=== PATIENT | male | born 1990 | race Caucasian/White ===

== ENCOUNTER 2021-01-18 11:50 | Outpatient (CLI) | payer OTHER, SELFPAY ==
--- NOTE | ~2021-01-18 | XR_ITS ---
EXAMINATION: XR wrist LT min 3V DATE: 01/18/2021 12:11 INDICATION: Left wrist pain. TECHNIQUE: 4 views of left wrist were obtained. COMPARISON: None. FINDINGS: Bone alignment is normal. No fracture. Joint spaces are well maintained. IMPRESSION: 1. Normal left wrist. Reviewed, dictated and finalized at location A. IMPRESSION: 1. Normal left wrist.
[2021-01-18 19:48] LABS: Basophils Absolute Auto 0.1 K/mm3 (0.0-0.1); Eosinophils Absolute Auto 0.8 K/mm3 (0-0.3); Eosinophils Percent Auto 9.8 % (0-4.4); Hematocrit 50.1 % (42.0-52.0); Hemoglobin 16.8 g/dL (14.0-18.0); Immature Granulocyte Absolute 0.02 K/mm3 (0.00-0.031); Immature Granulocyte Percent A 0.3 % (0-0.5); Lymphocytes Absolute Auto 2.62 K/mm3 (0.9-3.2); Lymphocytes Percent Auto 32.8 % (18.3-44.2); Mean Corpuscular HGB Conc 33.5 g/dl (32-36); Mean Corpuscular Hemoglobin 31.9 pg (26-34); Mean Corpuscular Volume 95.1 fl (80-100); Mean Platelet Volume 11.5 fl (7.4-10.4); Monocytes Absolute Auto 0.7 K/mm3 (0.1-0.6); Monocytes Percent Auto 8.6 % (2.6-8.5); Neutrophils Absolute Auto 3.8 K/mm3 (1.3-6.7); Neutrophils Percent Auto 47.5 % (45.5-73.1); Platelet Count Result 238 k/mm3 (150-375); Red Blood Count 5.27 M/mm3 (4.6-6.20); Red Cell Distribution Width 12.8 % (11.5-14.5)
[2021-01-18 19:54] LABS: Alanine Aminotransferase 20 U/L (4-50); Albumin Level 4.3 g/dL (3.5-5.1); Alkaline Phosphatase 83 U/L (38-126); Anion Gap 9 mmol/L (8-16); Aspartate Amino Transferase 26 U/L (17-59); Bilirubin,Total 0.8 mg/dL (0.2-1.3); Blood Urea Nitrogen 7 mg/dL (9-20); Calcium 9.4 mg/dL (8.4-10.2); Carbon Dioxide 27 mmol/L (22-30); Chloride 104 mmol/L (98-107); Cholesterol 152 mg/dL (0-200); Estimated Glomerular Filt Rate > 60; Glucose 93 mg/dL (65-110); HDL Direct 49 mg/dL; Potassium 4.4 mmol/L (3.4-5.0); Sodium 140 mmol/L (137-145); Triglycerides 94 mg/dL (<150)
[2021-01-18 20:09] LABS: LDL Cholesterol Direct 83 mg/dL
== END 2021-01-18 11:51 | disposition home or self-care (01) ==
PROVIDERS: PCP Family Medicine; Visit Provider Family Medicine
DX: H91.90 Unspecified hearing loss, unspecified ear (principal); M25.539 Pain in unspecified wrist
CPT/HCPCS: 36415; 73110; 80053; 80061; 85025

== ENCOUNTER 2021-04-27 15:40 | Emergency (ER) | payer OTHER, SELFPAY ==
[2021-04-27 15:50] VITALS: BP 121/73; PULSE 71; RESP 18; TEMP 36.7; O2SAT 98
--- NOTE | 2021-04-27 15:58 | ED.URI ---
HPI - URI/Sore Throat General Chief Complaint: Upper Respiratory Infection Stated Complaint: Cough,Fever Source: patient and RN notes reviewed Limitations: no limitations History of Present Illness HPI Narrative: The unvaccinated patient, a ex-smoker/occasional drinker, presents with cough. Patient states he has a 1 to 2-day worsening of at least a 2-week history of nonproductive cough. This initially began with sore throat which improved, followed by fever to 100.3 in the last couple days. No sputum changes, earache, wheezing-but had multiple inhalers as a teenager. No loss of taste/smell, CP, rash, S OB, vomiting/diarrhea bleeding-but he did have posttussive emesis occasionally. Symptoms are mild, worse at night; discussed possible causes [infectious (viral, bacterial), allergic,etc.] and will treat broadly. Related Data Allergies Allergy/AdvReac Type Severity Reaction Status Date / Time cefaclor [From [facility]] Allergy Intermediate Nausea and Verified 04/27/21 15:59 Vomiting Review of Systems Review of Systems: General/Constitutional: No weight loss,fever Eyes: N0: Redness,discharge Ears/Nose/Throat: No: Epistaxis,ear discharge Respiratory: Denies: Hemoptysis Gastrointestinal: No Vomiting, Bleeding-rectal Skin: No Lumps, eruption Neurologic: No Focal Weakness,Sz Hematologic: Denies: Petechiae/Purpura Psychiatric: No: Suicida ideationl All Other Systems: Reviewed and Negative [facility], LAT[facility] Past Medical History Medical History (Updated 04/27/21 @ 16:17 by Colt Cannon MD) Ganglion cyst of foot Tonsil and adenoid disease, chronic Family History Family History Father Lung cancer Diabetes mellitus Depression Mother Depression Sibling Depression Grandparent Diabetes mellitus Heart disease Social History Social History (Updated 01/18/21 @ 10:08 by Deja Glez [facility]) Smoking status: Former smoker Tobacco type: e-cigarettes/vaping Second hand tobacco smoke exposure: No Smoking end date: 06/18/20 Alcohol intake: current Alcohol use details: 9 beer per month Substance use: never Gender identity (if verbalized by the patient): Male Sexual Orientation (if Verbalized by the Patient): Straight or Heterosexual Spiritual care concerns: No Agree to blood products: Yes Comments At time of signature, agree with nursing past medical, surgical, social and family history. There is no relevant family history pertinent to the presenting complaint Exam Narrative: General Appearance: Well appearing, Well nourished EYE: PERRLA, Conjunctiva clear Ears: Auditory canal normal, TM normal Nose: Rhinorrhea, Mucousal erythema Mouth/Throat: MM moist, Uvula midline, Pharyngeal erythema Neck: Supple, No adenopathy Respiratory: No respiratory distress, Breath sounds equal, Clear to auscultation Cardiovascular: RRR, No JVD Musculoskeletal: Non tender, Normal strength Skin: Warm, Dry Neurological: A&O x3, CN II-XII intact Psychiatric: Normal mood, Normal affect Course Vital Signs Vital signs: Vital Signs Temperature 98.1 F 04/27/21 15:50 Pulse Rate 71 04/27/21 15:50 Respiratory Rate 18 04/27/21 15:50 Blood Pressure 121/73 04/27/21 15:50 Pulse Oximetry 98 04/27/21 15:50 Temperature 98.1 F 04/27/21 15:50 Pulse Rate 71 04/27/21 15:50 Respiratory Rate 18 04/27/21 15:50 Blood Pressure 121/73 04/27/21 15:50 Pulse Oximetry 98 04/27/21 15:50 Discharge Plan Discharge Clinical Impression: Chronic cough Patient Disposition: Home, Self-Care Condition: Stable Instructions: Antibiotic Form, Chronic Cough (ED) Prescriptions: New azithromycin 250 mg tablet See Rx Instructions .ROUTE .COMPLEX Qty: 6 RF: 0 prednisone 20 mg tablet 60 mg PO DAILY Qty: 9 RF: 0 benzonatate 100 mg capsule 100 mg PO TID PRN (Reason: cough) Qty: 20 RF: 2 albuterol
[2021-04-28 17:50] LABS: SARS-CoV-2 RNA PCR Negative
== END 2021-04-27 16:18 | disposition home or self-care (01) ==
PROVIDERS: Emergency Provider Emergency Medicine; PCP Family Medicine
DX: R05.3 Chronic cough (principal); Z20.822 Contact with and (suspected) exposure to COVID-19
CPT/HCPCS: 99213; C9803; G0463; U0003; U0005

== ENCOUNTER 2022-08-23 14:42 | Emergency (ER) | payer OTHER, SELFPAY ==
--- NOTE | 2022-08-23 14:45 | ED.URI ---
HPI - URI/Sore Throat General Chief Complaint: Upper Respiratory Infection Stated Complaint: Sore Throat Time Seen by Provider: 08/23/22 14:45 Source: patient and RN notes reviewed History of Present Illness HPI Narrative: Patient is a 31-year-old male who presents to urgent care with complaints of sore throat since Sunday night. Patient denies any fevers or other upper respiratory complaints. States that his daughter was diagnosed with strep on Sunday. Patient has been taking Tylenol and Claritin. No other acute complaints. No acute distress noted. Patient aware of the plan of care. Some parts of this dictation were generated by voice recognition software and may contain typographical and/or grammatical inaccuracies. Related Data Allergies Allergy/AdvReac Type Severity Reaction Status Date / Time [facility] [[facility] Allergy Intermediate Nausea and Verified 08/23/22 14:55 Vomiting Review of Systems Review of Systems: CONSTITUTIONAL: Denies fever, chills, or sweats. EYES: Denies visual changes, redness, or discharge. ENT: Denies rhinorrhea, congestion, otalgia. Reports of sore throat CARDIOVASCULAR: Denies chest pain, palpitations, or edema. RESPIRATORY: Denies cough or dyspnea. GASTROINTESTINAL: Denies abdominal pain, nausea, vomiting, or diarrhea. GENITOURINARY: Denies dysuria or hematuria. SKIN: Denies rash or itching. MUSCULOSKELETAL: Denies back pain, joint pain, or myalgia. NEUROLOGIC: Denies headache, numbness, or weakness. All other systems reviewed are negative, except as documented in HPI. [facility] Past Medical History Medical History (Updated 08/23/22 @ 15:11 by JUS Soto) Ganglion cyst of foot Tonsil and adenoid disease, chronic Family History Family History Father Lung cancer Diabetes mellitus Depression Mother Depression Sibling Depression Grandparent Diabetes mellitus Heart disease Social History Social History (Updated 01/18/21 @ 10:08 by Deja Glez CMA) Smoking status: Former smoker Tobacco type: e-cigarettes/vaping Second hand tobacco smoke exposure: No Smoking end date: 06/18/20 Alcohol intake: current Alcohol use details: 9 beer per month Substance use: never Living arrangements: with family Occupation/Education: occupation Gender identity (if verbalized by the patient): Male Sexual Orientation (if Verbalized by the Patient): Straight or Heterosexual Spiritual care concerns: No Agree to blood products: Yes Comments At the time of my signature, I reviewed and agree with the nursing past medical, surgical, social, and family history. There is no relevant family history pertinent to the patient complaint. Exam Narrative: GENERAL: This is a well-nourished, well-developed patient, in no apparent distress. HEAD: normocephalic, atraumatic. EYES: PERRL. Sclera clear/white. Vision is grossly intact. EARS: External ears normal, auditory canals clear and without drainage, TMs normal without perforation. Hearing grossly intact. NOSE: External nose normal with no obvious nasal discharge, nares without redness, no rhinorrhea. THROAT: Mucous membranes moist, moderate erythema to posterior pharynx with mild postnasal drainage NECK: Neck supple, non-tender without lymphadenopathy, masses or thyromegaly. CARDIOVASCULAR: Regular rate and rhythm RESPIRATORY: Clear to auscultation. Breath sounds equal bilaterally. No wheezes, rales, or rhonchi. SKIN: warm, intact with no suspicious lesions or rash, good texture and turgor. NEURO: awake, alert, and oriented to person, place and time. There were no obvious focal neurologic abnormalities. EXTREMITIES: No clubbing, cyanosis, or edema. Course Course Level of Care: Express Care Visit Vital Signs Vital signs: Vital Signs Temperature 98.1 F 08/23/22 14:52 Pulse Rate 71 08/23/22 14:52 Respiratory Rate 18 08/23/22 14:
[2022-08-23 14:52] VITALS: BP 122/71; PULSE 71; RESP 18; TEMP 36.7; O2SAT 100
== END 2022-08-23 15:20 | disposition home or self-care (01) ==
PROVIDERS: Emergency Provider Nurse Practitioner Family; PCP Emergency Medicine
DX: J02.0 Streptococcal pharyngitis (principal); Z87.891 Personal history of nicotine dependence
CPT/HCPCS: 87880; 99213; G0463

== ENCOUNTER → 2022-10-26 10:18 | Outpatient (CLI) | payer OTHER, SELFPAY ==
--- NOTE | ~2022-10-26 | US_ITS ---
Ultrasound of the right upper sternal MEDICAL HISTORY: Mass TECHNIQUE: Targeted sonographic imaging performed of the area of clinical concern. FINDINGS: At the area of clinical concern, there is a 6.5 x 1.8 x 4.9 cm isoechoic, circumscribed ova l mass, wider than tall. IMPRESSION: 6.5 x 1.8 x 4.9 cm oval mass, as detailed above, at the area of clinical concern. Findings are sugges tive of lipoma. MR could be considered to better confirm adipose tissue. Reviewed, dictated and finalized at location M. IMPRESSION: 6.5 x 1.8 x 4.9 cm oval mass, as detailed above, at the area of clinical concer n. Findings are suggestive of lipoma. MR could be considered to better confirm adipose tissue.
== END ==
PROVIDERS: PCP Nurse Practitioner; Visit Provider Nurse Practitioner
DX: R22.31 Localized swelling, mass and lump, right upper limb (principal)
CPT/HCPCS: 76882

== ENCOUNTER 2023-08-17 12:07 | Emergency (ER) | payer OTHER, SELFPAY ==
[2023-08-17 12:14] VITALS: BP 128/66; PULSE 76; RESP 20; TEMP 37.3; O2SAT 100
--- NOTE | 2023-08-17 12:48 | ED.URI ---
HPI - URI/Sore Throat General Chief Complaint: Upper Respiratory Infection Stated Complaint: Chest Congstion/Cough/Fever Time Seen by Provider: 08/17/23 12:50 Source: patient and RN notes reviewed Mode of arrival: ambulatory Limitations: no limitations History of Present Illness HPI Narrative: 32-year-old male presents with concern for fever that started yesterday. Reports he had exposure to influenza. He reports cough, nasal congestion, chest discomfort. He is reports taking Claritin and Mucinex. MD elicited complaint: cough Related Data Allergies Allergy/AdvReac Type Severity Reaction Status Date / Time cefaclor [From [facility]] Allergy Intermediate Nausea and Verified 10/24/22 09:29 Vomiting Review of Systems Review of Systems: CONSTITUTIONAL: Reports malaise, fever. EYES: Denies visual changes, redness, or discharge. ENT: Reports rhinorrhea, congestion CARDIOVASCULAR: Denies chest pain, palpitations, or edema. RESPIRATORY: Reports cough. Denies dyspnea. GASTROINTESTINAL: Denies abdominal pain, nausea, vomiting, diarrhea SKIN: Denies rash or itching. MUSCULOSKELETAL: Reports myalgia. NEUROLOGIC: Denies headache. All systems reviewed & are unremarkable except as noted in HPI and below PMFSH Past Medical History Medical History (Updated 08/17/23 @ 12:56 by Randi Huerta NP) Ganglion cyst of foot Tonsil and adenoid disease, chronic Family History Family History Father Lung cancer Diabetes mellitus Depression Mother Depression Sibling Depression Grandparent Diabetes mellitus Heart disease Social History Social History (Updated 10/24/22 @ 09:28 by Karolina Hooks MA) Smoking status: Former smoker Tobacco type: e-cigarettes/vaping Second hand tobacco smoke exposure: No Smoking end date: 06/18/20 Alcohol intake: current Alcohol use details: 9 beer per month Substance use: never Lack of Transportation: No Lack of Food: Sometimes True Current Housing: I Have Housing Concerned About Future Housing: No Difficulty Paying Gas/Electric Bills: No Difficulty Paying for Meds: No Currently Unemployed: No Education: High School Diploma/GED Difficulty w/ Childcare or Family Care: No Living arrangements: with family Occupation/Education: occupation Gender identity (if verbalized by the patient): Male Sexual Orientation (if Verbalized by the Patient): Straight or Heterosexual Spiritual care concerns: No Agree to blood products: Yes Comments At time of signature, agree with nursing past medical, surgical, social and family history. There is no relevant family history pertinent to the presenting complaint Exam Narrative: GENERAL: Nontoxic-appearing, well-nourished, and in no acute distress. HEAD: Normocephalic EYES: PERRLA, conjunctivae clear ENT: Nares clear. Mucous membranes moist. TM pearly cox with sharp light reflex bilaterally; no tragal tenderness. Oropharynx not erythematous without lesions. Tonsils not enlarged and without exudate, no drooling, no hoarseness, no trismus, uvula midline. NECK: Supple. No lymphadenopathy CHEST: Clear to auscultation, breath sounds equal. No wheezing, rhonchi, rales, or stridor. No respiratory distress, speaks in full sentences. HEART: Regular rate and rhythm. No murmur heard. SKIN: Warm, dry, no rash. NEURO: Alert and oriented x3. PSYCH: Normal mood and affect Course Course Emergency Course: Patient is aware of diagnosis, understands and agrees to treatment plan. Anticipatory guidance given. Patient agrees to follow-up as directed and is aware of reasons to seek care at the emergency department. Portions of this record may have been created with voice recognition software Level of Care: Express Care Visit Vital Signs Vital signs: Vital Signs Temperature 99.1 F 08/17/23 12:14 Pulse Rate 76 08/17/23 12:14 Respiratory Rate
== END 2023-08-17 13:02 | disposition home or self-care (01) ==
PROVIDERS: Emergency Provider Nurse Practitioner
DX: J10.1 Influenza due to other identified influenza virus with other respiratory manifestations (principal); Z20.822 Contact with and (suspected) exposure to COVID-19
CPT/HCPCS: 87426; 87804; 99213; G0463

== ENCOUNTER 2023-08-22 13:26 | Emergency (ER) | payer OTHER, SELFPAY ==
[2023-08-22 13:31] VITALS: BP 120/68; PULSE 57; RESP 18; TEMP 36.5; O2SAT 100
--- NOTE | 2023-08-22 14:28 | ED.URI ---
HPI - URI/Sore Throat General Chief Complaint: Upper Respiratory Infection Stated Complaint: coughing/chest tight Time Seen by Provider: 08/22/23 14:30 Source: patient, RN notes reviewed and old records reviewed Mode of arrival: ambulatory Limitations: no limitations History of Present Illness HPI Narrative: 32 year old male who presents to [facility] care with complaints of cough with nasal congestion and some some chest discomfort with cough. Patient reports that he has been taking Claritin and Mucinex and he had prescription Phenergan cough medication that has not helped his cough. Patient reports that he was diagnosed with influenza B on 08/17/2023 and has not been able to rest due to cough. Patient denies any recent fevers. MD elicited complaint: cough, rhinorrhea and nasal congestion Pertinent past history: pneumonia and other (bronchitis, 08/17/2023 diagnosed Influenza B) Onset (ago): day(s) (6 days) Consistency: constant Pain scale (0-10): 2 Able to tolerate fluids by mouth: Yes Treatments prior to arrival: other (Claritin,Mucininex, phenergan cough syrup) Related Data Allergies Allergy/AdvReac Type Severity Reaction Status Date / Time cefaclor [From [facility]] Allergy Intermediate Nausea and Verified 08/22/23 13:51 Vomiting Review of Systems Review of Systems: CONSTITUTIONAL: Denies malaise, chills, sweats, or fever. EYES: Denies visual changes, redness, or discharge. ENT: Reports rhinorrhea, congestion, no sinus pain, no otalgia and no sore throat. CARDIOVASCULAR: Denies chest pain, palpitations, or edema. RESPIRATORY: Reports cough.? Denies dyspnea.chest soreness from cough GASTROINTESTINAL: Denies abdominal pain, nausea, vomiting, diarrhea SKIN: Denies rash or itching. MUSCULOSKELETAL: Denies myalgia. NEUROLOGIC: Denies headache. 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 Surgical History Surgical History (Updated 08/23/23 @ 15:35 by Tawny Gomez NP) Hx of adenoidectomy Family History Family History Father Lung cancer Diabetes mellitus Depression Mother Depression Sibling Depression Grandparent Diabetes mellitus Heart disease Social History Social History (Updated 08/23/23 @ 15:35 by Tawny Gomez NP) Smoking status: Current every day smoker Tobacco type: e-cigarettes/vaping Second hand tobacco smoke exposure: No Smoking end date: 06/18/20 Alcohol intake: current Alcohol use details: 9 beer per month Substance use: never Lack of Transportation: No Lack of Food: Sometimes True Current Housing: I Have Housing Concerned About Future Housing: No Difficulty Paying Gas/Electric Bills: No Difficulty Paying for Meds: No Currently Unemployed: No Education: High School Diploma/GED Difficulty w/ Childcare or Family Care: No Living arrangements: with family Occupation/Education: occupation Gender identity (if verbalized by the patient): Male Sexual Orientation (if Verbalized by the Patient): Straight or Heterosexual Spiritual care concerns: No Agree to blood products: Yes Comments At time of signature, agree with nursing past medical, surgical, social and family history. There is no relevant family history pertinent to the presenting complaint Exam Narrative: GENERAL: Well-appearing, well-nourished, and in no acute distress. HEAD: Normocephalic EYES: PERRLA, conjunctivae clear ENT: Nares clear, turbinates edematous and erythematous, clear discharge. Mucous membranes moist. TM pearly cox with dull light reflex bilaterally; no tragal tenderness. Oropharynx erythematous without lesions. Tonsils not enlarged and without exudate, no drool
== END 2023-08-22 14:50 | disposition home or self-care (01) ==
PROVIDERS: Emergency Provider Registered Nurse
DX: R05.1 Acute cough (principal)
CPT/HCPCS: 99213; G0463

== ENCOUNTER 2024-10-15 15:47 | Emergency (ER) | payer OTHER, SELFPAY ==
--- NOTE | 2024-10-15 15:48 | ED.SKABFB ---
HPI - Skin/Abscess/Foreign Bdy General Chief complaint: Skin/Abscess/Foreign Body Stated complaint: Rash Time Seen by Provider: 10/15/24 15:48 Source: patient Mode of arrival: ambulatory Limitations: no limitations History of Present Illness HPI narrative: David is a 33-year-old male patient presenting to the clinic today with complaints a rash on his bilateral arms, torso, buttocks, genital area, and legs. He reports the rash is itchy. Was out the [employer] last week and has been doing [employer] work this week. Thinks he may have gotten into some poison janessa. Related Data Home Medications ?Medication ?Instructions ?Recorded ?Confirmed ?Last Taken ?Type claritain 10/15/24 Unknown History Allergies Allergy/AdvReac Type Severity Reaction Status Date / Time cefaclor (From [facility]) Allergy Intermediate Nausea and Verified 10/15/24 15:57 Vomiting Review of Systems Review of Systems: Pertinent positives per HPI. Patient denies any fever, chills, headache, visual changes, dizziness, cough, runny nose, sore throat, shortness of breath, chest pain, palpitations, nausea, vomiting, diarrhea, constipation, abdominal pain, or any urinary issues. [facility] Past Medical History Medical History Acute cough URI due to influenza Tonsil and adenoid disease, chronic Ganglion cyst of foot Surgical History Surgical History Hx of adenoidectomy Family History Family History Father Lung cancer Diabetes mellitus Depression Mother Depression Sibling Depression Grandparent Diabetes mellitus Heart disease Social History Social History Smoking status: Current every day smoker Tobacco type: e-cigarettes/vaping Second hand tobacco smoke exposure: No Smoking end date: 06/18/20 Alcohol intake: current Alcohol use details: 9 beer per month Substance use: never Lack of Transportation: No Lack of Food: Sometimes True Current Housing: I Have Housing Concerned About Future Housing: No Difficulty Paying Gas/Electric Bills: No Difficulty Paying for Meds: No Currently Unemployed: No Education: High School Diploma/GED Difficulty w/ Childcare or Family Care: No Living arrangements: with family Occupation/Education: occupation Gender identity (if verbalized by the patient): Male Sexual Orientation (if Verbalized by the Patient): Straight or Heterosexual Spiritual care concerns: No Agree to blood products: Yes Comments At the time of my signature, I reviewed and agree with the nursing past medical, surgical, social, and family history. There is no relevant family history pertinent to the patient complaint. Exam Narrative: General: Well-developed, well nourished, in no apparent distress Head: Normocephalic, atraumatic. Cardio: Regular rate and rhythm, s1 and s2 normal, no murmur appreciated. Resp: Clear to auscultation bilaterally, no rhonchi, rales, wheezing or rubs. Integumentary: [place], warm, and dry, red, raised, itchy, blister like rash to bilateral arms, torso, buttocks, groin, and legs. Course Course Emergency Course: Portions of this record may have been created with voice recognition software. Level of Care: Express Care Visit Vital Signs Vital signs: Vital Signs Temperature 36.4 C 10/15/24 15:58 Pulse Rate 77 10/15/24 15:58 Respiratory Rate 16 10/15/24 15:58 Blood Pressure 133/67 10/15/24 15:58 Pulse Oximetry 99 10/15/24 15:58 Oxygen Delivery Room Air 10/15/24 15:58 Temperature 36.4 C 10/15/24 15:58 Pulse Rate 77 10/15/24 15:58 Respiratory Rate 16 10/15/24 15:58 Blood Pressure 133/67 10/15/24 15:58 Pulse Oximetry 99 10/15/24 15:58 Oxygen Delivery Room Air 10/15/24 15:58 Vital signs reviewed MDM - Skin/Abscess/Foreign Bdy MDM Narrative Medical decision making narrative: At the time of visit patient is resting comfortably on the exam table. Patient appears to be nontoxic. Medications: Dexamethasone 10 mg IM given in the clinic today Plan: I suspect patient has poison janessa dermatitis. Prescription for 10 day taper dose of prednisone and triamcinolone cream was sent to the pharmacy. Supportive measures were discussed with the patient and they voiced understanding discharge instructions and agrees to treatment plan. Return precautions reviewed Differential Diagnosis Differential diagnosis: Likely abscess of skin or subcutaneous tissue, viral exanthem, dermatophytosis, urticaria, herpes zoster, allergic reaction to drug, cellulitis, eczema, insect bites, impetigo and contact dermatitis Discharge Plan Discharge Clinical Impression: Allergic dermatitis due to poison janessa Patient Disposition: Home Condition: Stable Instructions: Antibiotic Form, Poison Janessa (ED) Additional Instructions: Apply triamcinolone cream as directed Take prednisone as directed-start prednisone tomorrow-October 16, 2024 Avoid hot showers May apply calamine lotion to rash Avoid scratching as this can cause a secondary infection. May take benadryl 25-50mg every 6 hours as needed for itching. Follow up with your PCP in 3-5 days if symptoms persist or sooner if they worsen Go to the Emergency Room if symptoms worsen- fever, rash spreading with treatment, shortness of breath, tongue swelling, drooling, or chest pain Patient Language: [place] Prescriptions: New prednisone 10 mg tablet 10 mg PO DAILY Qty: 30 0RF Rx Instructions: 60mg po daily on day 1, 40mg po daily on days 2-4, 30mg po daily on days 5-6, 20mg po daily on days 7-8, 10mg po daily on days 9-10 triamcinolone acetonide 0.1 % cream 1 applic topical BID 7 Days Qty: 30 0RF No Action claritain Follow-up/Referrals: Irma,Jcarlos Landa MD [Primary Care Provider] - Time of Disposition: 16:04 Quality NIHSS Nursing Documentation ED NIHSS nursing documentation: reviewed/agree
[2024-10-15 15:58] VITALS: BP 133/67; PULSE 77; RESP 16; TEMP 36.4; O2SAT 99
[2024-10-15] MEDS: dexAMETHasone SOD PHOS INJ 10 MG/ML 1 ML VIAL IM (16:09)
--- OUTSIDE RECORDS SUMMARY | 2024-10-15 16:27 | XMS_ITS | Clinical Summary ---
Author Organization [facility] Address [address] [place] [id number] Care Team Providers Care [employer] Wireless Manager Name Role Phone Jcarlos Solis MD Primary Care Provider [phone] Social History Tobacco Use Types Packs/Day Years Used Date Smoking Tobacco: Never Assessed Sex and Gender Information Value Date Recorded Sex Assigned at Not on file Legal Sex Male 8:07 PM CDT Gender Identity Not on file Sexual Orientation Not on file Plan of Treatment Health Maintenance Due Date Last Done Comments Annual Physical 12/04/1995 Hepatitis C 2010 DTaP, Tdap and Td Vaccines ( 1 - Tdap) 12/04/2011 Hepatitis B Vaccines (1 of 3 - 19+ 3-dose series) 12/04/2011 COVID-19 Vaccine (2023-2 5 season) 2024 HPV Vaccines Aged Out No longer eligi ble based on patient's age to complete this topic Meningococcal B Vaccine Aged Out No l onger eligible based on patient's age to complete this topic Meningococcal Vaccine Aged Out No felipa kitty eligible based on patient's age to complete this topic Pneumococcal Vaccine: Pediat rics (0 to 5 Years) and At-Risk Patients (6 to 49 Years) Aged Out No longer eligible b ased on patient's age to complete this topic RSV Immunizations Under 20 Months Aged Out No longer eligible based on patient's age to complete this topic Care Teams [employer] Wireless Manager Relationship Specialty Start Date End Date Jcarlos Solis MD [address] [place] [address] PCP - General 12/29/12
== END 2024-10-15 16:33 | disposition home or self-care (01) ==
PROVIDERS: Emergency Provider Nurse Practitioner Family; PCP Family Medicine
DX: L23.7 Allergic contact dermatitis due to plants, except food (principal); F17.290 Nicotine dependence, other tobacco product, uncomplicated
CPT/HCPCS: 96372; 99213; G0463; J1100